=== PATIENT | male | born 1980 | race Caucasian/White ===

== ENCOUNTER → 2018-02-13 09:52 | Outpatient (CLI) | payer BC, SELFPAY ==
--- NOTE | 2018-02-13 | DI.CT.S_ITS ---
PROCEDURE: CT CHEST ABDOMEN W CON INDICATIONS: Lung mass seen on outside chest x-ray. TECHNIQUE: After the administration of oral contrast and intravenous contrast, 5 mm thick sections acquired from the lung apices to the iliac crests. 5 mm coronal and sagittal reformats were performed, with additional 7 mm coronal MIP reformats through the lungs. For radiation dose reduction, the following was used: automated exposure control, adjustment of mA and/or kV according to patient size. COMPARISON: None available. FINDINGS: Image quality: Excellent. CHEST: Lungs and pleura: There are 2 ovoid well-circumscribed soft tissue masses involving the pleura and possibly the chest wall along the left lower lobe measuring up to 4.9 x 2.3 cm and 2.8 x 2.2 cm. This extends to the adjacent 8th rib without associated bony destruction. Mild associated groundglass opacities within the left lower lobe likely represent atelectasis or scarring, and less likely pulmonary invasion. No pleural effusions or pneumothorax. Central and peripheral airways are patent and normal in caliber. Mediastinum: Heart size is normal. No pericardial effusion. No mediastinal or hilar adenopathy by size criteria. Thoracic aorta and central pulmonary arteries are normal in size. Esophagus is normal in caliber. No hiatal hernia. Chest wall: No axillary or supraclavicular adenopathy by size criteria. The left thyroid lobe is not visualized and may be surgically absent. ABDOMEN: Solid organs: Liver is normal in size and enhancement. Gallbladder appears within normal limits without calcified gallstones. Biliary system is non dilated. Pancreas enhances normally. Spleen is normal in size and enhancement. No adrenal nodules. Kidneys are normal in size and enhancement, without hydronephrosis. Peritoneum and bowel: Visualized bowel loops demonstrate normal wall thickness and caliber. No free fluid or air. Nodes and vessels: No retroperitoneal or mesenteric adenopathy by size criteria. Aorta and inferior vena cava are normal in caliber. Bones: No suspicious bony lesions. No vertebral body compression fractures. Miscellaneous: No ventral hernias. IMPRESSION: 1. 2 well-circumscribed pleural-based masses demonstrated along the left lower lobe with probable chest wall involvement. 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 Recommend histologic diagnosis. 2. Mild associated ground glass opacities within the left lower lobe likely represent associated atelectasis or scarring. Pulmonary invasion is less likely. Dictated by: Saw Casiano M.D. on 02/13/2018 at 13:09 Approved by: Saw Casiano M.D. on 02/13/2018 at 13:18
== END ==
PROVIDERS: Visit Provider Family Medicine
DX: R91.8 Other nonspecific abnormal finding of lung field (principal)
CPT/HCPCS: 71260; 74160; Q9967